=== PATIENT | female | born 1970 | race Caucasian/White ===

== ENCOUNTER 2016-09-19 10:02 | Emergency (ER) | payer OTHER ==
--- NOTE | ~2016-09-19 | CR141 ---
[facility] A Service of [facility] RADIOLOGY TEXT RESULTS PATIENT: LILI LOCATION: SED : 66 UNIT #: [id number] AGE: [address]: Gabriel Espinoza MD SEX: F ORDER DR: [id number] [place] [id number] E MR#: [id number] Acc #: [id number] NAME: LILI OCTOBER : 1970 SEX: F STUDY DATE/TIME: 09/19/2016 09:57 UNIT: SED ROOM: STUDY DESCRIPTION: CR Hand Min 3 Views Lt Attending Physician: Gabriel Espinoza M.D. Ordering Physician: Gabriel Espinoza M.D. Primary Care Physician: Primary Care Physician No MEDICAL IMAGING REPORT This report is preliminary unless electronic signature is present. EXAM Left hand, 3 views. 09/19/2016 at 09:57 hours. HISTORY 45-year-old woman with previous fracture and ORIF July 2016. A board fell onto of left hand last night while washing table at home. Patient had severe pain. COMPARISON None. FINDINGS AP, lateral and oblique views demonstrate a plate and screw fixator through the shaft of the fourth metacarpal with anatomic alignment. There is a fracture which is mostly healed. The bones appear mildly osteopenic. There is no distal radial or ulnar fracture. The carpal bones are intact. No new metacarpal or finger fracture seen. IMPRESSION There is dorsal soft tissue swelling with plate and screw fixator in the fourth metacarpal with anatomic alignment of the fracture which is mostly healed. No acute fracture seen. There is no soft tissue gas. Dictated by... Deysi Allen M.D. THIS IS AN ELECTRONICALLY VERIFIED REPORT Deysi Allen M.D. at 09/19/2016 11:43 AM Teresita TD: 09/19/2016 10:55 JOB #: [id number] [facility] A Service of [facility] RADIOLOGY TEXT RESULTS PATIENT: LILI [place]ATION[place] [facility] [place] [birth year] UNIT #: [id number] AGE: [address]: aGbriel Espinoza MD SEX: F ORDER DR: MEDICAL IMAGING REPORT
[~2016-09-19 10:02] MED LIST: ALBUTEROL MININEB NEB; ALBUTEROL17 GM INH; ALLERGY25 MG; CETIRIZINE HCL10 MG PO; CLARITIN10 M3 PO; DIAZEPAM PO; FIORICET W/CODE1 CAP; FLEXERIL10 MG PO; GABAPENTIN800 MG PO; HYDROCODON-ACE1 EAC5 PO; IMITREX PO; LASIX PO; LASIX20 MG PO; LORTAB 7.5-5001 TAB; LYRICA100 MG PO; MOBIC PO; MONTELUKAST SOD10 MG PO; OXYCARBAZEPINE; PHENERGAN PR; PHENERGAN25 MG PO; ROBAXIN500 MG PO; SYMBICORT INH; SYNTHROID0.05 MG PO; TOPAMAX PO; TOPAMAX50 MG PO; TRILEPTAL600 MG PO; VIBRAMYCIN100 M1 PO; VITAMIN B-1000 MCG/1 INJ; ZOFRAN SL
[2016-11-15] MEDS ORDERED: TIZANIDINE PO (11:13)
== END 2016-09-19 10:54 | disposition home or self-care (01) ==
LOC: SED 10:02
DX: S60.022A Contusion of left index finger without damage to nail, initial encounter (principal); J45.909 Unspecified asthma, uncomplicated; J44.9 Chronic obstructive pulmonary disease, unspecified; G43.909 Migraine, unspecified, not intractable, without status migrainosus; M79.7 Fibromyalgia; E03.9 Hypothyroidism, unspecified; Z90.89 Acquired absence of other organs; Z98.890 Other specified postprocedural states; W20.8XXA Other cause of strike by thrown, projected or falling object, initial encounter; Y92.009 Unspecified place in unspecified non-institutional (private) residence as the place of occurrence of the external cause
CPT/HCPCS: 73130; 99283

== ENCOUNTER 2016-11-15 11:39 | Emergency (ER) | payer OTHER ==
--- NOTE | ~2016-11-15 | CR141 ---
[facility] A Service of [facility] RADIOLOGY TEXT RESULTS PATIENT: LILI LOCATION: SED : 66 UNIT #: [id number] AGE: [address]: Cara Renteria SEX: F ORDER DR: [id number] [address] [address] [id number] E MR#: [id number] Acc #: [id number] NAME: LILI OCTOBER : 1970 SEX: F STUDY DATE/TIME: 11/15/2016 11:39 UNIT: SED ROOM: STUDY DESCRIPTION: CR Hand Min 3 Views Lt Attending Physician: Cara Renteria Pa-C Ordering Physician: Cara Renteria Pa-C Primary Care Physician: Primary Care Physician No MEDICAL IMAGING REPORT This report is preliminary unless electronic signature is present. EXAM Left hand 3 views 11/15/2016 1139 hours HISTORY Patient fell on wet steps outside his house last night. Pain and swelling in hand. History of previous fracture with surgery July 2016. COMPARISON 09/19/2016 FINDINGS AP, lateral and oblique views are performed. The distal radius and ulnar intact. No carpal bone fracture is seen. There is plate and screw fixation across a previous midshaft fourth metacarpal fracture which is healed and unchanged. No fifth metacarpal fracture seen. There are flexion deformities of the third through fifth fingers on all 3 views which could be positional but could indicate underlying contractures. IMPRESSION 1. Osteopenia with no acute fracture. Plate and screw fixation of previous fracture of the fourth metacarpal is noted without change. Fracture is healed. 2. Flexion deformities at the fingers of the third, fourth and fifth fingers similar to 09/19/2016. This could be positional but could indicate underlying contractures. 1. Dictated by... Deysi Allen M.D. THIS IS AN ELECTRONICALLY VERIFIED REPORT Deysi Allen M.D. at 11/15/2016 2:29 PM RAJIV/rhys [facility] A Service of [facility] RADIOLOGY TEXT RESULTS PATIENT: LILI [place] [facility] [place] [birth year] UNIT #: [id number] AGE: [address]: Cara Renteria PAC SEX: F ORDER DR: TD: 11/15/2016 13:50 JOB #: [id number] MEDICAL IMAGING REPORT Page 1 of 1
[~2016-11-15 11:39] MED LIST changes: +TIZANIDINE PO
== END 2016-11-15 12:47 | disposition home or self-care (01) ==
LOC: SED 11:39
DX: S60.222A Contusion of left hand, initial encounter (principal); Z98.890 Other specified postprocedural states; Z88.2 Allergy status to sulfonamides; Z88.1 Allergy status to other antibiotic agents; Z91.040 Latex allergy status; Z88.5 Allergy status to narcotic agent; Z88.6 Allergy status to analgesic agent; Z91.012 Allergy to eggs; Z79.899 Other long term (current) drug therapy; W01.0XXA Fall on same level from slipping, tripping and stumbling without subsequent striking against object, initial encounter; Y92.009 Unspecified place in unspecified non-institutional (private) residence as the place of occurrence of the external cause
CPT/HCPCS: 29280; 73130; 99283

== ENCOUNTER 2017-01-17 12:02 | Emergency (ER) | payer OTHER | END 2017-01-17 13:26 | disposition home or self-care (01) | LOC: SED 12:02 | DX: G43.909 Migraine, unspecified, not intractable, without status migrainosus (principal); G40.909 Epilepsy, unspecified, not intractable, without status epilepticus; J44.9 Chronic obstructive pulmonary disease, unspecified; Z79.891 Long term (current) use of opiate analgesic; Z79.899 Other long term (current) drug therapy | CPT/HCPCS: 96361; 96374; 96375; 99284; J1200; J2270; J2550 ==